=== PATIENT | female | born 1985 | race Caucasian/White ===

== ENCOUNTER 2021-04-15 08:24 | Emergency (ER) | payer MEDICAID ==
[~2021-04-15] VITALS: Ht 166.4 cm; Wt 119.4 kg
[~2021-04-15 08:24] MED LIST: BACTRIM
[2021-04-15 08:34] VITALS: BP 154/95
--- NOTE | 2021-04-15 08:39 | NUR ---
PATIENT AMBULATED TO BED 3.
--- NOTE | 2021-04-15 08:56 | NUR ---
urine collected, placed in dirty utility
--- NOTE | 2021-04-15 09:08 | NUR ---
35 y/o f bib self from home, c/o abd pain in left lower quadrant, "pulling" and dull sensation in area. last bm this morning, pt states she has been having constipation. denies n/v/d, dyuria, hematuria. abd bowel sounds x4, normoactive, firm/rounded/nontender. denies cough, fever, sob, cp or chills. denies anyone else sick in household. pmh: denies nka med: denies
--- NOTE | 2021-04-15 09:10 | NUR ---
DR SALAZAR AT BEDSIDE EXAMINING PT
[2021-04-15] MEDS ORDERED: LACT-103 PO (09:19)
[2021-04-15 09:34] VITALS: BP 154/95
--- NOTE | 2021-04-15 09:34 | NUR ---
Patient discharged with v/s stable. Written and verbal after care instructions given and explained. Patient alert, oriented and verbalized understanding of instructions. Ambulatory with steady gait. All questions addressed prior to discharge. ID band removed. Patient advised to follow up with PMD. Rx of LACTULOSE given. Patient educated on indication of medication including possible reaction and side effects. Opportunity to ask questions provided and answered.
== END 2021-04-15 09:34 | disposition home or self-care (01) ==
LOC: MED 08:24
DX: K59.00 Constipation, unspecified (principal); R11.2 Nausea with vomiting, unspecified; R50.9 Fever, unspecified; Z79.899 Other long term (current) drug therapy
CPT/HCPCS: 81002; 81025; 99283

== ENCOUNTER 2022-07-11 12:04 | Emergency (ER) | payer MEDICAID ==
[~2022-07-11] VITALS: Ht 167.6 cm; Wt 117.9 kg
[~2022-07-11 12:04] MED LIST changes: +LACT-103 PO
[2022-07-11 12:23] VITALS: BP 119/66
--- NOTE | 2022-07-11 12:47 | NUR ---
PT AMBULATED TO ER BED 9
[2022-07-11 13:30] LABS: APPEARANCE,URINE CLEAR (CLEAR); BILIRUBIN,URINE NEGATIVE (NEGATIVE); BLOOD, URINE NEGATIVE (NEGATIVE); COLOR,URINE YELLOW (YELLOW); LEUKOCYTE ESTERASE ,URINE 1+ (NEGATIVE); NITRITE, URINE NEGATIVE (NEGATIVE); UGLUCOSE NEGATIVE (NEGATIVE)
[2022-07-11 13:30] LABS: BASOPHILS # (AUTO) 0.1 K/uL (0.00-0.22); BASOPHILS % (AUTO) 0.6 % (0.0-2.0); EOSINOPHILS # (AUTO) 0.2 K/uL (0-0.4); EOSINOPHILS % (AUTO) 2.3 % (0.0-4.0); HEMATOCRIT 35.6 % (36-48); HEMOGLOBIN 12.1 g/dL (12.0-16.0); LYMPHOCYTES % (AUTO) 24.6 % (20.5-51.1); MEAN CORPUSCULAR HEMOGLOBIN 29 pg (27-31); MEAN CORPUSCULAR HGB CONC 34 g/dL (33-37); MEAN CORPUSCULAR VOLUME 85.1 fL (80-94); MONOCYTES # (AUTO) 0.4 K/uL (0.8-1.0); MONOCYTES % (AUTO) 5.5 % (1.7-9.3); NEUTROPHILS # (AUTO) 5.4 K/uL (1.8-7.7); PLATELET COUNT (AUTO) 285 K/uL (140-450); RED BLOOD CELL COUNT(AUTO) 4.18 MIL/uL (4.20-5.40); RED CELL DISTRIBUTION WIDTH 14.2 % (11.6-13.7); WHITE BLOOD COUNT (AUTO) 8.1 K/uL (4.8-10.8)
[2022-07-11 13:53] LABS: ANION GAP 13.9 (8-16); CREATININE 0.8 mg/dL (0.6-1.3); POTASSIUM 3.9 mmol/L (3.5-5.1); TOTAL BILIRUBIN 0.4 mg/dL (0.0-1.0)
[2022-07-11 14:01] LABS: RBC,URINE 0-5 /HPF (0-5); WBC,URINE 0-5 /HPF (0-5)
[2022-07-11] MEDS ORDERED: AZIT250T4 PO ×2 (14:27→14:53)
[2022-07-11] MEDS ORDERED: LOPE1TAB14 PO ×2 (14:32→14:53)
[2022-07-11] MEDS ORDERED: BISM262C53 PO ×2 (14:32→14:53)
[2022-07-11 14:38] VITALS: BP 119/66
--- NOTE | 2022-07-11 14:39 | NUR ---
Patient discharged with v/s stable. Written and verbal after care instructions given and explained. Patient verbalized understanding. Ambulatory with steady gait. All questions addressed prior to discharge. Advised to follow up with PMD.
== END 2022-07-11 14:38 | disposition home or self-care (01) ==
LOC: MED 12:04
DX: K52.9 Noninfective gastroenteritis and colitis, unspecified (principal); K92.1 Melena; E83.51 Hypocalcemia; K57.30 Diverticulosis of large intestine without perforation or abscess without bleeding; D25.9 Leiomyoma of uterus, unspecified; K42.9 Umbilical hernia without obstruction or gangrene; Z79.899 Other long term (current) drug therapy; Z79.2 Long term (current) use of antibiotics
CPT/HCPCS: 36415; 80053; 81001; 81025; 83690; 85025; 87086; 99284